=== PATIENT | female | born 1970 | race Caucasian/White ===

== ENCOUNTER 2017-11-02 10:41 | Emergency (ER) | payer OTHER ==
[~2017-11-02] VITALS: Ht 175.3 cm; Wt 77.3 kg
[~2017-11-02 10:41] MED LIST: APRI1 EACH PO; ASPIRIN325 MG PO; CITALOPRAM HBR20 MG PO; FIORICET,ESG1 TABLET PO; NAPROSYN500 MG PO; PRAVACHOL40 MG PO; PREDNISONE10 MG PO
[2017-11-02 11:26] LABS: HEMATOCRIT 41.6 % (36.0-46.0); HEMOGLOBIN 14.1 G/DL (11.9-15.5); MCH 30.7 PG (29.0-34.0); MCHC 33.9 G/DL (30.0-36.0); MCV 90.6 FL (83-99); PLATELET COUNT 249 K/uL (156-360); RBC DIS.WIDTH-CV 12.6 % (11.8-14.6); RBC DIS.WIDTH-SD 41.8 % (39-53); RED BLOOD COUNT 4.59 M/uL (3.80-5.20); WHITE BLOOD COUNT 6.8 K/uL (4.1-10.2)
[2017-11-02 11:34] LABS: CHLORIDE 106 mEq/L (99-109); POTASSIUM 3.7 mEq/L (3.7-5.4); SODIUM 139 mEq/L (136-147)
[2017-11-02 11:34] LABS: PTT 24.5 SEC (25-37)
[2017-11-02 11:36] LABS: GLUCOSE 125 mg/dL (70-99)
[2017-11-02 11:39] LABS: CREATININE 0.9 mg/dL (0.6-1.3); GFR ESTIMATE (CALCULATED) > 59 mL/min/
[2017-11-02 11:40] LABS: UREA NITROGEN (BUN) 9 mg/dL (9-23)
[2017-11-02 12:02] LABS: C-REACTIVE PROTEIN 2.5 MG/L (0-10)
[2017-11-02 13:54] LABS: ERTH.SED.RATE 8 MM/HR (0-20)
[2017-11-02] MEDS ORDERED: ZOFRAN ODT4 MG PO (14:44)
[2017-11-02 14:56] VITALS: BP 132/84
== END 2017-11-02 14:57 | disposition home or self-care (01) ==
LOC: EME 10:41
PROVIDERS: Physician Assistant
DX: R51 Headache (principal); H53.122 Transient visual loss, left eye; F32.9 Major depressive disorder, single episode, unspecified; K58.9 Irritable bowel syndrome, unspecified; Z86.69 Personal history of other diseases of the nervous system and sense organs; Z88.2 Allergy status to sulfonamides; Z88.0 Allergy status to penicillin
CPT/HCPCS: 70450; 70551; 80048; 85027; 85610; 85651; 85730; 86140; 99281; 99284; J1885